=== PATIENT | female | born 1975 | race Two or more races ===

== ENCOUNTER 2022-01-23 04:41 | Day surgery (SDC) | payer BC, OTHER ==
[2022-01-19 15:47] VITALS: BMI 24.0
[2022-01-23] MEDS ORDERED: PROPOFOL 40 ML ONE (11:41)
[2022-01-23] MEDS ORDERED: SUCCINYLCHOLINE CHLORIDE 200 MG/10 ML SYRINGE ONE (11:42)
[2022-01-23] MEDS ORDERED: ONDANSETRON 4 MG/2 ML VIAL ONE (11:42)
[2022-01-23] MEDS ORDERED: KETOROLAC TROMETHAMINE 30 MG/1 ML VIAL ONE (11:42)
[2022-01-23] MEDS ORDERED: DEXAMETHASONE SOD PHOSPHATE 4 MG/1 ML VIAL ONE (11:42)
[2022-01-23] MEDS ORDERED: MIDAZOLAM HCL 2 MG/2 ML SINGLE DOSE VIAL ONE (11:42)
[2022-01-23] MEDS ORDERED: ceFAZolin 2 GRAM PREMIX BAG IVPB ONE (11:45)
[2022-01-23] MEDS ORDERED: ceFAZolin SODIUM 1 GM VIAL ONE (12:01)
[2022-01-23] MEDS ORDERED: PROMETHAZINE HCL 25 MG/1 ML VIAL IVPUSH PRN (12:43)
[2022-01-23] MEDS ORDERED: oxyCODONE HCL 5 MG TABLET PO PRN ×2 (12:43→12:45)
[2022-01-23] MEDS ORDERED: IBUPROFEN 600 MG TABLET (FP) PO PRN (12:45)
[2022-01-23] MEDS ORDERED: ONDANSETRON 4 MG/2 ML VIAL IVPUSH PRN (12:45)
[2022-01-23] MEDS ORDERED: LACTATED RINGERS SOLUTION 1,000 ML IV SCH (12:45)
[2022-01-23] MEDS ORDERED: IBUPROFEN 800 MG/8 ML IJ IVPB PRN (12:45)
[2022-01-23] MEDS ORDERED: ELECTROLYTE-148 SOLN 1,000 ML IV SCH (12:45)
[2022-01-23 15:22] VITALS: RESP 18
[2022-01-23 15:36] VITALS: BP 119/75; PULSE 74; TEMP 98.3
[2022-01-23] MEDS ORDERED: IBUPROFEN 600 MG TABLET (FP) PO ONE (15:47)
== END 2022-01-23 16:29 | disposition home or self-care (01) ==
LOC: JASU-SURG 04:41
PROVIDERS: ATTEND Obstetrics & Gynecology
PROC: 0U5B8ZZ Destruction of Endometrium, Via Natural or Artificial Opening Endoscopic (ICD-10-PCS; principal; 2022-01-23 11:00)
DX: N92.0 Excessive and frequent menstruation with regular cycle (principal); N94.6 Dysmenorrhea, unspecified
CPT/HCPCS: 81025; 94760

== ENCOUNTER 2022-11-08 05:37 | Inpatient (IN) | payer BC, OTHER ==
[2022-11-06 18:41] VITALS: BMI 25.2
[2022-11-08] MEDS ORDERED: BUPIVACAINE LIPOSOME/PF (EXPAREL) 266 MG/20 ML VIAL ONE (13:52)
[2022-11-08] MEDS ORDERED: BUPIVACAINE HCL/PF 0.5% (5MG/ML) 10 ML VIAL ONE (13:52)
[2022-11-08] MEDS ORDERED: ONDANSETRON 4 MG/2 ML VIAL ONE (13:59)
[2022-11-08] MEDS ORDERED: PROPOFOL 20 ML ONE (13:59)
[2022-11-08] MEDS ORDERED: DEXAMETHASONE SOD PHOSPHATE 4 MG/1 ML VIAL ONE ×2 (13:59→14:01)
[2022-11-08] MEDS ORDERED: SEVOFLURANE 250 ML BTL ONE (13:59)
[2022-11-08] MEDS ORDERED: MIDAZOLAM HCL 2 MG/2 ML SINGLE DOSE VIAL ONE (13:59)
[2022-11-08] MEDS ORDERED: TRANEXAMIC ACID 1000 MG/10 ML VIAL ONE (13:59)
[2022-11-08] MEDS ORDERED: ceFAZolin SODIUM 1 GM VIAL ONE (14:02)
[2022-11-08] MEDS ORDERED: ONDANSETRON 4 MG/2 ML VIAL IVPUSH PRN ×2 (14:07→15:59)
[2022-11-08] MEDS ORDERED: PROMETHAZINE HCL 25 MG/1 ML VIAL IVPB PRN (14:07)
[2022-11-08] MEDS ORDERED: ACETAMINOPHEN 1000 MG/100 ML BAG IVPB PRN (14:07)
[2022-11-08] MEDS ORDERED: LACTATED RINGERS SOLUTION 1,000 ML IV SCH (14:15)
[2022-11-08] MEDS ORDERED: HYDROmorphone *PCA* 10MG/50ML DISP.SYRIN PCA SCH (14:15)
[2022-11-08] MEDS ORDERED: ROCURONIUM BROMIDE 50 MG/5 ML SYRINGE ONE (14:16)
[2022-11-08] MEDS ORDERED: HYDROmorphone HCl 2 MG/ML VIAL ONE (14:16)
[2022-11-08] MEDS ORDERED: LIDOCAINE HCL/PF 2% SDV 5ML VIAL ONE (14:19)
[2022-11-08] MEDS ORDERED: ceFAZolin SODIUM 1 GM VIAL IVPB ONE (14:24)
[2022-11-08] MEDS ORDERED: KETOROLAC TROMETHAMINE 30 MG/1 ML VIAL ONE (14:26)
[2022-11-08] MEDS ORDERED: SUGAMMADEX SODIUM 200 MG/2 ML VIAL ONE (14:45)
[2022-11-08] MEDS ORDERED: HYDROmorphone *PCA* 10MG/50ML DISP.SYRIN ONE (15:59)
[2022-11-08] MEDS ORDERED: ELECTROLYTE-148 SOLN 1,000 ML IV SCH (16:00)
[2022-11-08 17:59] VITALS: RESP 18
[2022-11-08] MEDS ORDERED: ceFAZolin 2 GRAM PREMIX BAG IVPB SCH (18:00)
[2022-11-08] MEDS ORDERED: oxyCODONE HCL 5 MG TABLET PO PRN (18:38)
[2022-11-08] MEDS: SIMETHICONE 80 MG TAB.CHEW (FP) PO PRN (21:45)
[2022-11-08] MEDS: CEFAZOLIN SODIUM 2 GM in DEXTROSE 5%-WATER 100 ML IVPB SCH (21:45)
[2022-11-08] MEDS: ACETAMINOPHEN 1000 MG/100 ML BAG IVPB PRN (23:45)
[2022-11-08] MEDS: SENNOSIDES 8.6MG TABLET (FP) PO SCH (23:46)
[2022-11-09] MEDS: SIMETHICONE 80 MG TAB.CHEW (FP) PO PRN ×3 (06:07→18:48)
[2022-11-09] MEDS: CEFAZOLIN SODIUM 2 GM in DEXTROSE 5%-WATER 100 ML IVPB SCH ×2 (06:10→14:11)
[2022-11-09 08:08] LABS: HEMATOCRIT 34.6 % (32.4-45.2); HEMOGLOBIN 11.2 GM/dL (10.7-15.3); MCH 28.4 pg (25.7-33.7); MCHC 32.3 g/dl (32.0-36.0); MEAN CELL VOLUME 87.9 fl (80-96); MEAN PLT VOLUME 8.5 fl (7.5-11.1); PLATELET COUNT 315 10^3/uL (134-434); RBC 3.93 M/mm3 (3.60-5.2); RDW 13.3 % (11.6-15.6); WHITE BLOOD COUNT 12.7 K/mm3 (4.0-10.0)
[2022-11-09 08:21] LABS: POTASSIUM 4.5 mmol/L (3.5-5.1)
[2022-11-09 08:25] LABS: BLOOD UREA NITROGEN 10.3 mg/dL (7-18)
[2022-11-09 08:27] LABS: CREATININE 0.7 mg/dL (0.55-1.3)
[2022-11-09 08:32] LABS: CALCIUM 8.3 mg/dL (8.5-10.1)
[2022-11-09] MEDS: ENOXAPARIN NA (PORCINE) 40 MG/0.4 ML DISP.SYRIN SQ SCH (09:16)
[2022-11-09] MEDS: SENNOSIDES 8.6MG TABLET (FP) PO SCH ×2 (09:16→21:13)
[2022-11-09] MEDS: ACETAMINOPHEN 1000 MG/100 ML BAG IVPB PRN ×2 (09:16→16:11)
[2022-11-09] MEDS: IBUPROFEN 600 MG TABLET (FP) PO PRN ×2 (14:10→18:48)
[2022-11-09] MEDS ORDERED: BISACODYL 10 MG SUPP.RECT PR PRN (14:39)
[2022-11-09] MEDS: oxyCODONE HCL 5 MG TABLET PO PRN (21:03)
[2022-11-10] MEDS: IBUPROFEN 600 MG TABLET (FP) PO PRN ×3 (04:13→21:08)
[2022-11-10] MEDS: SIMETHICONE 80 MG TAB.CHEW (FP) PO PRN ×3 (04:13→21:07)
[2022-11-10] MEDS: oxyCODONE HCL 5 MG TABLET PO PRN (08:54)
[2022-11-10 09:32] LABS: BASO % 0.7 % (0-2.0); EOS % 1.6 % (0-4.5); HEMATOCRIT 33.8 % (32.4-45.2); LYMPH % 35.6 % (8-40); MCH 28.6 pg (25.7-33.7); MCHC 32.6 g/dl (32.0-36.0); MEAN CELL VOLUME 87.9 fl (80-96); MEAN PLT VOLUME 8.3 fl (7.5-11.1); MONO % 6.7 % (3.8-10.2); NEUT % 55.4 % (42.8-82.8); PLATELET COUNT 307 10^3/uL (134-434); RBC 3.84 M/mm3 (3.60-5.2); RDW 13.6 % (11.6-15.6)
[2022-11-10 09:33] LABS: POTASSIUM 3.9 mmol/L (3.5-5.1)
[2022-11-10 09:44] LABS: BLOOD UREA NITROGEN 8.8 mg/dL (7-18)
[2022-11-10 09:46] LABS: CALCIUM 8.5 mg/dL (8.5-10.1)
[2022-11-10 09:47] LABS: CREATININE 0.5 mg/dL (0.55-1.3)
[2022-11-10] MEDS: SENNOSIDES 8.6MG TABLET (FP) PO SCH ×2 (10:00→21:08)
[2022-11-10] MEDS: ENOXAPARIN NA (PORCINE) 40 MG/0.4 ML DISP.SYRIN SQ SCH (10:00)
[2022-11-11] MEDS: IBUPROFEN 600 MG TABLET (FP) PO PRN ×2 (04:00→09:49)
[2022-11-11] MEDS: SIMETHICONE 80 MG TAB.CHEW (FP) PO PRN ×2 (04:00→09:49)
[2022-11-11 08:36] VITALS: BP 97/61; PULSE 74; TEMP 97.9
[2022-11-11] MEDS: ENOXAPARIN NA (PORCINE) 40 MG/0.4 ML DISP.SYRIN SQ SCH (09:47)
[2022-11-11] MEDS: SENNOSIDES 8.6MG TABLET (FP) PO SCH (09:47)
== END 2022-11-11 11:09 | disposition home or self-care (01) | DRG 743 ==
LOC: J2C 05:37 → J3W 18:07
PROVIDERS: ADMIT Obstetrics & Gynecology; ATTEND Obstetrics & Gynecology
PROC: 0UT20ZZ Resection of Bilateral Ovaries, Open Approach (ICD-10-PCS; 2022-11-08)
PROC: 0UT70ZZ Resection of Bilateral Fallopian Tubes, Open Approach (ICD-10-PCS; 2022-11-08)
PROC: 0UT90ZZ Resection of Uterus, Open Approach (ICD-10-PCS; principal; 2022-11-08 15:30)
DX: N80.03 Adenomyosis of the uterus (principal); N80.00 Endometriosis of the uterus, unspecified; N83.202 Unspecified ovarian cyst, left side
CPT/HCPCS: 36415; 80048; 85025; 85027; 88305-TC; 94760